=== PATIENT | female | born 1970 | race Caucasian/White ===

== ENCOUNTER 2017-12-15 21:49 | Emergency (ER) | payer OTHER ==
[~2017-12-15] VITALS: Ht 167.6 cm; Wt 72.6 kg
[~2017-12-15 21:49] MED LIST: KETO10TA2 PO; NORFLEX100MG PO
[2017-12-16] MEDS ORDERED: MUCINEX DM ER1 EAC1 PO (00:49)
[2017-12-16] MEDS ORDERED: NEBUSAL4 M1 IH (00:49)
[2017-12-16] MEDS ORDERED: KETO10TA2 PO (00:49)
[2017-12-16] MEDS ORDERED: ZITHROMAX500 MG PO (00:49)
== END 2017-12-16 00:56 | disposition home or self-care (01) ==
LOC: ER 21:49
DX: J32.8 Other chronic sinusitis (principal)